=== PATIENT | female | born 1960 | race African-American/Black ===

== ENCOUNTER 2021-12-06 13:52 | Inpatient (IN) | payer MEDICARE, OTHER ==
[~2021-12-06] VITALS: Ht 162.6 cm; Wt 72.6 kg
[2021-12-06] MEDS ORDERED: FLUO40CA49 PO (14:54)
[2021-12-06] MEDS ORDERED: PANT40TA49 PO (14:54)
[2021-12-06] MEDS ORDERED: OLAN10TA3 PO (14:54)
[2021-12-06 15:00] VITALS: BP 118/59
[2021-12-06] MEDS ORDERED: MAG HYDROX/AL HYDROX/SIMETH 30 ML UDC PO PRN (15:00)
[2021-12-06] MEDS ORDERED: ACETAMINOPHEN 325 MG TABLET PO PRN (15:00)
--- NOTE | 2021-12-06 15:00 | NUR ---
GPS/RN ADMITTING PT DIRECT ADMIT FROM [facility] ON 5150 FOR DTS/DTO. DR OWENS CALLED FOR THE ORDERS. ORDERS RECEIVED AND CARRIED OUT. PROPERTY CHECKED FOR CONTRABAND. PT IS AGITATED,SCREAMING PARANOID HEARING VOICES TELLING TO KILL HERSELF. FLAILING ARMS AND BANGING ON THE GERICHAIR TRAY. REFUSED TO SIGN ADMITTING FORMS.
[2021-12-06] MEDS ORDERED: LORAZEPAM INJ 2 MG/ML VIAL IM STA (15:05)
--- NOTE | 2021-12-06 15:20 | NUR ---
GPS/RN REQUESTED THE MEDICATION TO GET RID OF VOICES. CONTINUES TO SCREAM AND BANG ON THE TRAY. DR OWENS CALLED FOR THE ORDERS. PT AGREED FOR INJECTION
[2021-12-06] MEDS ORDERED: OLANZAPINE 10 MG VIAL IM ONE (15:30)
[2021-12-06 16:00] VITALS: BP 118/59
--- NOTE | 2021-12-06 16:00 | NUR ---
GPS/RN PT'S MOTHER AND SISTER AWARE OF ADMISSION/CALLED TO THE UNIT AND HAD CONVERSATION WITH PT
--- NOTE | 2021-12-06 17:03 | NUR ---
GPS/RN PT REFUSED MRSA SWAB ON ADMISSION. WILL ENDORSE TO DROP PRESS HAND TO FOLLOW UP AND TO ASSESS FOR COVID VACC STATUS
[2021-12-06 19:58] VITALS: BP 146/72
[2021-12-06] MEDS ORDERED: PANTOPRAZOLE 40 MG TABLET.DR PO ONE (21:29)
[2021-12-06] MEDS: PANTOPRAZOLE 40 MG TABLET.DR PO SCH (21:33)
[2021-12-07 07:18] LABS: ALBUMIN 3.2 g/dL (3.4-5.0); BILIRUBIN,TOTAL 0.5 mg/dL (0.2-1.0); CALCIUM, SERUM 9.1 mg/dL (8.5-10.1); CREATININE 0.9 mg/dL (0.6-1.3); TOTAL PROTEIN, SERUM 6.8 g/dL (6.4-8.2)
[2021-12-07 08:00] VITALS: BP 110/66
[2021-12-07] MEDS: PANTOPRAZOLE 40 MG TABLET.DR PO SCH ×2 (08:57→21:13)
--- NOTE | 2021-12-07 11:44 | NUR ---
DONOVAN Clinical Note: Pt placed on a 5150 hold for danger to self and GD. Pt has been hearing voices that are telling her to kill herself. Patient currently resides at [address] [place] [address]; ([phone]) and would want to return back home. Pt is alert and oriented x3 and does not want the staff to wash crew person to notify Mariah ([phone]) who she stated is her friend.
--- NOTE | 2021-12-07 11:44 | NUR ---
DONOVAN Initial Discharge Plan: Patient currently resides at [address] [place] [id number]; ([phone]) and would want to return back home. Pt is alert and oriented x3 and does not want the staff to customer contact sales associate to notify Mariah ([phone]) who she stated is her friend. DONOVAN will work with the MD, family, and treatment team to help coordinate appropriate discharge.
--- NOTE | 2021-12-07 11:44 | NUR ---
Treatment Plan: Pt appeared manic and refused to sign the treatment plan.
[2021-12-07 16:00] VITALS: BP 122/78
[2021-12-07] MEDS ORDERED: FLUOXETINE HCL 20 MG CAPSULE PO ONE (18:30)
--- NOTE | 2021-12-07 18:40 | NUR ---
NURSE NOTE: ONE TIME DOSE OF PROZAC ADMINISTERED ORDERED. WILL CONT TO MONITOR.
[2021-12-07 19:51] VITALS: BP 111/60
[2021-12-07] MEDS ORDERED: OLANZAPINE 10 MG TABLET PO SCH (22:00)
[2021-12-07] MEDS ORDERED: CLOZAPINE 25 MG TABLET PO SCH (22:00)
[2021-12-07 22:59] LABS: BASOPHILS % (AUTO) 0.9 % (0.0-2.0); HEMATOCRIT 37 % (33-45); HEMOGLOBIN 11.9 g/dL (11.5-14.8); LYMPHOCYTES # (AUTO) 1.8 K/uL (0.8-4.8); LYMPHOCYTES % (AUTO) 38.3 % (20.0-44.0); MEAN CORPUSCULAR HGB CONC 32 g/dl (31.0-36.0); MEAN CORPUSCULAR VOLUME 82 fL (82-100); MONOCYTES # (AUTO) 0.4 K/uL (0.1-1.30); MONOCYTES % (AUTO) 7.7 % (2.0-12.0); NEUTROPHILS # (AUTO) 2.5 K/uL (1.8-8.9); NEUTROPHILS % (AUTO) 53.1 % (43.0-81.0); PLATELET COUNT (AUTO) 217 K/uL (150-450); RED BLOOD CELL COUNT(AUTO) 4.52 MIL/uL (4.0-5.2); WHITE BLOOD COUNT (AUTO) 4.7 K/uL (4.3-11.0)
[2021-12-08 08:00] VITALS: BP 104/61
[2021-12-08] MEDS: PANTOPRAZOLE 40 MG TABLET.DR PO SCH ×2 (09:06→21:06)
--- NOTE | 2021-12-08 14:30 | NUR ---
RN NOTE PATIENT HEARING VOICES,PARANOID,PATIENT VOLUNTARY ASKING FOR INJECTION ATIVAN AND OLANZAPINE,MD ORDERED EMERGENCY ATIVAN 0.5MG IM INJECTION AND OLANZAPINE 5MG STAT NOW NOTED AND CARRIED OUT.
[2021-12-08] MEDS ORDERED: OLANZAPINE 10 MG VIAL IM STA (14:32)
[2021-12-08] MEDS ORDERED: LORAZEPAM INJ 2 MG/ML VIAL IM STA (14:32)
[2021-12-08] MEDS: FLUOXETINE HCL 20 MG CAPSULE PO SCH (15:00)
[2021-12-08 16:09] VITALS: BP 136/96
[2021-12-08] MEDS: LORAZEPAM 0.5 MG TABLET PO PRN (19:48)
[2021-12-08] MEDS: OLANZAPINE 10 MG TABLET PO SCH (21:07)
[2021-12-08] MEDS ORDERED: FLUPHENAZINE HCL 10 MG TABLET PO SCH (22:00)
[2021-12-09] MEDS: ZOLPIDEM TARTRATE 5 MG TABLET PO PRN (00:12)
--- NOTE | 2021-12-09 07:35 | NUR ---
RN OPENING NOTES PATIENT AWAKE IN BED RESTING, A/O X3. NO S/S OF PAIN NOTED AT THIS TIME. ON ROOM AIR, NO DISTRESS OR SHORTNESS OF BREATH NOTED. PATIENT COMPLIANT WITH MEDICATION. PATIENT DENIES SUICIDE IDEATIONS AND HOMICIDAL IDEATIONS AT THIS TIME. PATIENT HAS NO NEEDS AT THIS TIME. FALL AND SAFETY MEASURES IN PLACE, BED ALARM ON, BED IN LOW LOCK POSITION, CALL LIGHT AND TABLE WITHIN EASY REACH, SIDE RAILS UP X2. WILL CONTINUE TO MONITOR.
[2021-12-09 08:00] VITALS: BP 102/68
[2021-12-09] MEDS: PANTOPRAZOLE 40 MG TABLET.DR PO SCH ×2 (08:29→21:22)
[2021-12-09] MEDS: FLUOXETINE HCL 20 MG CAPSULE PO SCH (08:29)
--- NOTE | 2021-12-09 14:01 | NUR ---
DONOVAN Family Contact: With patient's permission, DONOVAN contacted pt's person to notify Mariah ([phone]) and left a voicemail to contact this personal lines underwriter back to gather collateral.
--- NOTE | 2021-12-09 14:17 | NUR ---
DONOVAN Family Contact: With patient's permission, DONOVAN contacted pt's aunt Emily ([phone]) to gather collateral. Aunt stated that it is safe for pt to return back home upon discharge. She reported that pt lives with her friend Mariah who cares for her and stated Mariah will be picking up pt upon discharge. She also shared that pt has been in and out of [facility]. DONOVAN shared this information with Dr. Su.
[2021-12-09 16:00] VITALS: BP 138/89
--- NOTE | 2021-12-09 19:22 | NUR ---
RN OPENING NOTES RECEIVED PATIENT IN BED SLEEPING,BUT EASY TO AROUSED, A/O X3.ON ROOM AIR MARY WELL,NO SOB/DISTRESS NOTED,NO BEHAVIORAL CHANGES AT THIS TIMES, FALL AND SAFETY MEASURES IN PLACE, BED ALARM ON, BED IN LOW LOCK POSITION, CALL LIGHT AND TABLE WITHIN EASY REACH, SIDE RAILS UP X2. WILL CONTINUE TO MONITOR.
[2021-12-09 20:00] VITALS: BP 124/58
[2021-12-09] MEDS: OLANZAPINE 10 MG TABLET PO SCH (21:23)
[2021-12-09] MEDS: FLUPHENAZINE HCL 10 MG TABLET PO SCH (21:30)
[2021-12-10 08:00] VITALS: BP 100/66
[2021-12-10] MEDS: PANTOPRAZOLE 40 MG TABLET.DR PO SCH ×2 (09:21→21:20)
[2021-12-10] MEDS: FLUOXETINE HCL 20 MG CAPSULE PO SCH (09:21)
--- NOTE | 2021-12-10 09:50 | NUR ---
RN Notes: Received pt. asleep in bed, breathing is even and unlabored. Ate 25% for breakfast, compliant on meds. Pt. is easily got irritated and guarded upon approached. Encouraged to verbalize feelings and motivated to attend group activity. Needs attended and will continue to monitor for safety.
--- NOTE | 2021-12-10 10:55 | NUR ---
DONOVAN Family Contact: SW received a call from pt's mother Leyla ([phone]) and with the permission of pt allowing this director underwriter sales to speak to her mother. SW discussed treatment/discharge planning.
--- NOTE | 2021-12-10 11:05 | NUR ---
DONOVAN Family Contact: With patient's permission, DONOVAN contacted pt's aunt Emily ([phone]) and discussed transportation. Emily stated that she will order Uber for the pt when ready for pt.
[2021-12-10] MEDS: LORAZEPAM 0.5 MG TABLET PO PRN (12:22)
[2021-12-10 16:00] VITALS: BP 120/84
--- NOTE | 2021-12-10 19:30 | NUR ---
GPS RN NOTE, RECEIVED PATIENT AWAKE AND IN BED, NO S/S OR COMPLAINTS OF PAIN AT THIS TIME. PATIENT IS DISPLAYING NO S/S OF APPARENT DISTRESS AT THIS TIME. PATIENT BREATHING IS UNLABORED WITH EQUAL RISE AND FALL OF THE CHEST. PATIENT IS ALERT AND ORIENTED X 2 ON ROOM AIR WITH A SPO2 96%. PATIENT IS COMPLIANT WITH MEDICATIONS, CALM, RESPONDING TO INTERNAL STIMULI, DISORGANIZED, AND COOPERATIVE. PATIENT DENIES SUICIDAL AND HOMICIDAL IDEATIONS AT THIS TIME. PATIENT ASSISTED WITH TURNING AND REPOSITIONING Q2HR AND PRN FOR COMFORT AND CIRCULATION. PATIENT HAS NO NEEDS AT THIS TIME. PATIENT EDUCATED ON THE USE OF THE CALL SHERMAN. PATIENT BED SIDE RAILS UP X 2 FOR SAFETY. PATIENT BED IS LOCKED, LOW, WITH BED ALARM ON. WILL CONTINUE TO MONITOR THIS PATIENT Q15 MINUTES WITH THE HELP OF STAFF TO MAINTAIN SAFETY.
[2021-12-10 20:00] VITALS: BP 128/80
[2021-12-10] MEDS: OLANZAPINE 10 MG TABLET PO SCH (21:19)
[2021-12-10] MEDS: FLUPHENAZINE HCL 10 MG TABLET PO SCH (21:19)
[2021-12-11] MEDS: FLUOXETINE HCL 20 MG CAPSULE PO SCH (07:56)
[2021-12-11] MEDS: PANTOPRAZOLE 40 MG TABLET.DR PO SCH ×2 (07:56→21:12)
[2021-12-11 08:00] VITALS: BP 90/69
--- NOTE | 2021-12-11 11:08 | NUR ---
Court Hearing: Patient's court hearing for 9726 was today and pt did not want this policy writer sales to notify anyone.
--- NOTE | 2021-12-11 11:09 | NUR ---
Court Hearing: Patient's court hearing for 1250 was today and it was upheld for GD.
[2021-12-11 16:00] VITALS: BP 112/88
[2021-12-11] MEDS: LORAZEPAM 0.5 MG TABLET PO PRN (18:06)
--- NOTE | 2021-12-11 19:30 | NUR ---
GPS RN NOTE, RECEIVED PATIENT AWAKE AND IN ABRAN CHAIR, NO S/S OR COMPLAINTS OF PAIN AT THIS TIME. PATIENT IS DISPLAYING NO S/S OF APPARENT DISTRESS AT THIS TIME. PATIENT BREATHING IS UNLABORED WITH EQUAL RISE AND FALL OF THE CHEST. PATIENT IS ALERT AND ORIENTED X 2 ON ROOM AIR WITH A SPO2 95%. PATIENT IS COMPLIANT WITH MEDICATIONS, ANXIOUS, RESPONDING TO INTERNAL STIMULI, DISORGANIZED, AND COOPERATIVE. PATIENT DENIES SUICIDAL AND HOMICIDAL IDEATIONS AT THIS TIME. PATIENT ASSISTED WITH TURNING AND REPOSITIONING Q2HR AND PRN FOR COMFORT AND CIRCULATION. PATIENT HAS NO NEEDS AT THIS TIME. PATIENT EDUCATED ON THE USE OF THE CALL SHERMAN. PATIENT BED SIDE RAILS UP X 2 FOR SAFETY. PATIENT BED IS LOCKED, LOW, WITH BED ALARM ON. WILL CONTINUE TO MONITOR THIS PATIENT Q15 MINUTES WITH THE HELP OF STAFF TO MAINTAIN SAFETY.
[2021-12-11 20:00] VITALS: BP 101/73
[2021-12-11] MEDS ORDERED: OLANZAPINE 10 MG VIAL IM ONE (20:00)
[2021-12-11] MEDS ORDERED: LORAZEPAM INJ 2 MG/ML VIAL IM ONE (20:00)
--- NOTE | 2021-12-11 20:00 | NUR ---
GPS RN NOTE, PATIENT HAS A COMPLAINT OF HEARING VOICES TELLING HER TO HARM OTHERS AND HERSELF. PATIENT STARTED TO DIG HER FINGER NAIL INTO HER NECK. PATIENT IS REQUESTING A ZYPREXA AND ATIVAN INJECTION AT THIS TIME. LESS RESTRICTIVE MEASURES ATTEMPTED IE DIVERSION, 1 TO 1 INTERACTION, AND REORIENTATION WAS TRIED WITH NO POSITIVE EFFECT. PAGED DR OWENS AND INFORMED HIM OF MY FINDINGS. DR OWENS ORDERED ZYPREXA 5MG IM ONCE AND ATIVAN 1MG IM ONCE. PATIENT GIVEN AFOREMENTIONED MEDICATION IN HER RIGHT DELTOID WITH THE HELP OF STAFF. PATIENT TOLERATE PROCEDURE WELL. ALL ORDERS NOTED AND CARRIED OUT WILL CONTINUE TO MONITOR THE PATIENT.
[2021-12-11 21:04] VITALS: BP 140/92
[2021-12-11] MEDS: FLUPHENAZINE HCL 10 MG TABLET PO SCH (21:12)
[2021-12-11] MEDS: OLANZAPINE 10 MG TABLET PO SCH (21:12)
[2021-12-12 08:00] VITALS: BP 101/58
[2021-12-12] MEDS: FLUOXETINE HCL 20 MG CAPSULE PO SCH (08:21)
[2021-12-12] MEDS: PANTOPRAZOLE 40 MG TABLET.DR PO SCH ×2 (08:21→21:23)
[2021-12-12 16:00] VITALS: BP 100/62
[2021-12-12] MEDS: FLUPHENAZINE HCL 10 MG TABLET PO SCH ×2 (19:08→21:24)
--- NOTE | 2021-12-12 19:30 | NUR ---
GPS RN NOTE, RECEIVED PATIENT AWAKE AND IN ABRAN CHAIR, NO S/S OR COMPLAINTS OF PAIN AT THIS TIME. PATIENT IS DISPLAYING NO S/S OF APPARENT DISTRESS AT THIS TIME. PATIENT BREATHING IS UNLABORED WITH EQUAL RISE AND FALL OF THE CHEST. PATIENT IS ALERT AND ORIENTED X 2 ON ROOM AIR WITH A SPO2 96%. PATIENT IS COMPLIANT WITH MEDICATIONS, ANXIOUS, RESPONDING TO INTERNAL STIMULI, DISORGANIZED, AND COOPERATIVE. PATIENT DENIES SUICIDAL AND HOMICIDAL IDEATIONS AT THIS TIME. PATIENT ASSISTED WITH TURNING AND REPOSITIONING Q2HR AND PRN FOR COMFORT AND CIRCULATION. PATIENT HAS NO NEEDS AT THIS TIME. PATIENT EDUCATED ON THE USE OF THE CALL SHERMAN. PATIENT BED SIDE RAILS UP X 2 FOR SAFETY. PATIENT BED IS LOCKED, LOW, WITH BED ALARM ON. WILL CONTINUE TO MONITOR THIS PATIENT Q15 MINUTES WITH THE HELP OF STAFF TO MAINTAIN SAFETY.
[2021-12-12 20:56] VITALS: BP 140/68
[2021-12-12] MEDS: OLANZAPINE 10 MG TABLET PO SCH (21:23)
[2021-12-12] MEDS: ZOLPIDEM TARTRATE 5 MG TABLET PO PRN (22:32)
--- NOTE | 2021-12-12 22:32 | NUR ---
GPS RN NOTE, PATIENT HAS A COMPLAINT OF NOT BEING ABLE TO SLEEP AND IS REQUESTING AMBIEN AT THIS TIME. PATIENT VITAL SIGNS ARE STABLE. GAVE AMBIEN 5MG PO HS PRN ORDERED. WILL REASSESS OF INSOMNIA AND I WILL CONTINUE TO MONITOR THIS PATIENT WITH THE HELP OF STAFF.
[2021-12-13 08:00] VITALS: BP 100/57
[2021-12-13] MEDS: PANTOPRAZOLE 40 MG TABLET.DR PO SCH ×2 (08:19→20:11)
[2021-12-13] MEDS: FLUOXETINE HCL 20 MG CAPSULE PO SCH (08:19)
[2021-12-13 15:59] VITALS: BP 98/58
[2021-12-13] MEDS: FLUPHENAZINE HCL 10 MG TABLET PO SCH ×2 (17:00→20:11)
[2021-12-13] MEDS: MAGNESIUM HYDROXIDE 30 ML UDC PO PRN (18:57)
--- NOTE | 2021-12-13 19:04 | NUR ---
MURSE NOTE: PER PT SHE HAS NOT BEEN ABLE TO HAVE A BM SINCE ADMITTED ON 12/06. MILK OF MAGNESIUM ADMINISTERED ORDERED. PT MARY WELL. WILL CONT TO MONITOR.
--- NOTE | 2021-12-13 20:00 | NUR ---
RN NOTE: PATIENT REFUSED SKIN ASSESSMENT.
[2021-12-13 20:20] VITALS: BP 148/82
--- NOTE | 2021-12-13 21:00 | NUR ---
RN NOTE REPORT GIVEN TO CESAR CAREY FOR CONTINUITY OF CARE.
[2021-12-13] MEDS: OLANZAPINE 10 MG TABLET PO SCH (21:09)
[2021-12-13] MEDS: ZOLPIDEM TARTRATE 5 MG TABLET PO PRN (21:14)
[2021-12-13] MEDS: LORAZEPAM 0.5 MG TABLET PO PRN (21:47)
--- NOTE | 2021-12-13 22:39 | NUR ---
RN NOTE: PATIENT STILL HEARING VOICES AND TELLING HER "VOICES ARE TRYING TO TAKE HER OVER". PRN ATIVAN 1MG PO GIVEN. NOTIFIED ON-CALL DR. VILLA. AWAITING RESPONSE. 2300 - PATIENT IS CALM AND WENT BACK TO SLEEP. WILL CONTINUE TO MONITOR FOR PATIENT'S SAFETY.
--- NOTE | 2021-12-13 22:50 | NUR ---
Post 1 hr PRN meds effective. Pt asleep in bed easy to arouse. Frequent visual check done for safety. Will continue to monitor.
[2021-12-14 08:00] VITALS: BP 102/52
[2021-12-14] MEDS: PANTOPRAZOLE 40 MG TABLET.DR PO SCH ×2 (08:39→20:31)
[2021-12-14] MEDS: FLUOXETINE HCL 20 MG CAPSULE PO SCH (08:39)
--- NOTE | 2021-12-14 14:46 | NUR ---
[facility] Referral: DONOVAN sent clinicals for IOP program at [facility] for IOP program. DONOVAN spoke with intake Lei and he stated the will review pt's packet and will do an assessment with the pt.
--- NOTE | 2021-12-14 15:16 | NUR ---
[facility]: SW spoke with Horacio from [facility] ([phone]) program ([phone]) who stated that pt would have to call to set up the enrollment.
--- NOTE | 2021-12-14 15:16 | NUR ---
[facility] IOP: SW received a call from [facility] IOP program at [facility] who stated that they cannot accept pt due to her insurance they do not take medicare patient's.
[2021-12-14 16:00] VITALS: BP 114/70
[2021-12-14] MEDS: FLUPHENAZINE HCL 10 MG TABLET PO SCH ×2 (17:19→20:31)
[2021-12-14 20:06] VITALS: BP 116/69
[2021-12-14] MEDS: LORAZEPAM 0.5 MG TABLET PO PRN (20:31)
[2021-12-14] MEDS: OLANZAPINE 10 MG TABLET PO SCH (21:37)
--- NOTE | 2021-12-15 07:14 | NUR ---
WOUND CARE CONSULT: PT SLEEPING AT THIS TIME. REVIEWED CHART, NURSING DOCUMENTATION AND PHOTOS WHICH INDICATE DISCOLORATION TO NECK AREA. PER NURSE, NO OPEN WOUNDS. CURRENT DENISA SCORE IS 21. WILL SEE PRN.
[2021-12-15 08:00] VITALS: BP 100/63
[2021-12-15] MEDS: PANTOPRAZOLE 40 MG TABLET.DR PO SCH ×2 (09:02→21:05)
[2021-12-15] MEDS: FLUOXETINE HCL 20 MG CAPSULE PO SCH (09:02)
[2021-12-15] MEDS: MAGNESIUM HYDROXIDE 30 ML UDC PO PRN (14:31)
[2021-12-15 16:03] VITALS: BP 110/74
[2021-12-15] MEDS: FLUPHENAZINE HCL 10 MG TABLET PO SCH ×2 (17:09→21:06)
--- NOTE | 2021-12-15 18:57 | NUR ---
RN-NOTES PATIENT IN BED AWAKE A/O X3,GUARDED,NO ACUTE DISTRESS NOTED.PATIENT REFUSED GROUPS,PREFERS TO STAY IN THE ROOM MOST OF THE TIME. COMPLIANT WITH MEDICATIONS.ABLE TO MAKE NEEDS KNOWN TO THE STAFF.AMBULATORY STEADY GAIT.ALL NEEDS ATTENDED AND ANTICIPATED. WILL CONT. MONITORING FOR SAFETY AND BEHAVIOR.WILL ENDORSE TO INCOMING NURSE FOR CONTINUITY OF CARE.
--- NOTE | 2021-12-15 19:41 | NUR ---
GPS RN OPENING NOTE RECEIVED PATIENT AWAKE IN ABRAN CHAIR, NO S/S OR COMPLAINTS OF PAIN AT THIS TIME. PATIENT IS DISPLAYING NO S/S OF APPARENT DISTRESS AT THIS TIME. PATIENT BREATHING IS UNLABORED WITH EQUAL RISE AND FALL OF THE CHEST. PATIENT IS ALERT AND ORIENTED X 2 ON ROOM AIR WITH A SPO2 96%. NOTED WITH EPISODES OF UNPRODUCTIVE COUGH, PATIENT IS COMPLIANT WITH MEDICATIONS, ANXIOUS, RESPONDING TO INTERNAL STIMULI, ISOLATIVE, AND COOPERATIVE. PATIENT DENIES SUICIDAL AND HOMICIDAL IDEATIONS AT THIS TIME. PATIENT HAS NO NEEDS AT THIS TIME. PATIENT BED SIDE RAILS UP X 2 FOR SAFETY. WILL CONTINUE TO MONITOR THIS PATIENT Q15 MINUTES WITH THE HELP OF STAFF TO MAINTAIN SAFETY.
[2021-12-15 20:15] VITALS: BP 112/78
[2021-12-15] MEDS: OLANZAPINE 10 MG TABLET PO SCH (21:05)
[2021-12-15] MEDS: LORAZEPAM 0.5 MG TABLET PO PRN (23:43)
[2021-12-16] MEDS: ZOLPIDEM TARTRATE 5 MG TABLET PO PRN (00:30)
--- NOTE | 2021-12-16 00:30 | NUR ---
RN note: Noted patient had difficulty falling asleep, Ambien 5 mg PO given as ordered per clinical assessment .
[2021-12-16 08:00] VITALS: BP 104/55
--- NOTE | 2021-12-16 08:09 | NUR ---
DONOVAN Discharge Note: Patient will return back home located at [address] [address], [place] [address]; ([phone]). Patients aunt Emily ([phone]) will order uber 12PM. Patients aunt Emily ([phone]) is aware and agreeable of pt returning home. Patient appears alert and oriented x3. Patient denies suicidal or homicidal ideation. Patient denies visual/auditory hallucination. Patient happy to be going back home. DONOVAN gave referral for primary care at [facility] located at [address] [facility], [place] [address]; ([phone]). Patient will follow up with (Psychiatrist) Dr. Dez Smith [address] , [place], [address] . DONOVAN spoke with Horacio from [facility] ([phone]) program ([phone]) who stated that pt would have to call to set up the enrollment. Patient was provided resources for a psychiatrist: [facility] ([phone]), [facility] ([phone]), and [facility] ([phone]). Pt presents with euthymic mood and congruent affect.
[2021-12-16] MEDS: FLUOXETINE HCL 20 MG CAPSULE PO SCH (08:58)
[2021-12-16] MEDS: PANTOPRAZOLE 40 MG TABLET.DR PO SCH (08:58)
--- NOTE | 2021-12-16 12:15 | NUR ---
Patient discharged to home in stable condition.Compliant with medications ,cooperative with treatment plans Patient denies SI/HI/AVH .Behavior improved ,psychiatric tx plans met ,medical tx plans differed for for continual monitoring .Educated pt about after care plan (Exit -care)and copy provided Returned personal belongings to patient med list given and explained to patient able to verbalize understanding .Vs stable ,no c/o pain .Patient seen by (psychiatrist) and with discharge orders Patient discharge at 1215 with [employer] .
== END 2021-12-16 12:15 | disposition home or self-care (01) | DRG 885 ==
LOC: GPS 13:52
PROVIDERS: ADMIT Psychiatry & Neurology Psychiatry; ATTEND Internal Medicine
DX: F25.9 Schizoaffective disorder, unspecified (principal); E43 Unspecified severe protein-calorie malnutrition; N17.0 Acute kidney failure with tubular necrosis; F29 Unspecified psychosis not due to a substance or known physiological condition; F41.9 Anxiety disorder, unspecified; E66.9 Obesity, unspecified; Z68.27 Body mass index [BMI] 27.0-27.9, adult; E86.0 Dehydration; E78.5 Hyperlipidemia, unspecified; Z73.6 Limitation of activities due to disability; R53.1 Weakness; R27.8 Other lack of coordination; G31.84 Mild cognitive impairment of uncertain or unknown etiology; E88.09 Other disorders of plasma-protein metabolism, not elsewhere classified; F32.A Depression, unspecified; Z91.81 History of falling; Z91.51 Personal history of suicidal behavior; Z88.2 Allergy status to sulfonamides; Z79.899 Other long term (current) drug therapy
CPT/HCPCS: 36415; 80053-TC; 80061-TC; 84443-TC; 85025-TC; J2060; J3490